=== PATIENT | male | born 1945 | race Caucasian/White ===

== ENCOUNTER → 2017-02-10 | Outpatient (CLI) | payer MEDICARE, BC ==
[~2017-02-10] MED LIST: ENDOCET 5-3251 EAC1 PO; MIRTAZAPINE15 MG PO; SINGULAIR10 MG PO
== END | disposition home or self-care (01) ==
LOC: CDC 13:34
DX: R94.31 Abnormal electrocardiogram [ECG] [EKG] (principal)
CPT/HCPCS: 93000

== ENCOUNTER 2017-06-23 08:32 | Emergency (ER) | payer OTHER, BC ==
[~2017-06-23] VITALS: Ht 170.2 cm; Wt 72.2 kg
[2017-06-23 10:09] LABS: HEMATOCRIT 42.9 % (38.0-50.0); MCHC 35.2 G/DL (30.0-36.0); MCV 96.6 FL (86-99); MEAN PLAT.VOLUME 10.1 uM^3 (9.0-12.4); PLATELET COUNT 238 K/uL (156-360); RBC DIS.WIDTH-CV 13.1 % (11.8-14.6); RBC DIS.WIDTH-SD 47.1 % (39-53); RED BLOOD COUNT 4.44 M/uL (4.00-5.50); WHITE BLOOD COUNT 9.5 K/uL (4.1-10.2)
[2017-06-23 10:26] LABS: CHLORIDE 103 mEq/L (99-109); POTASSIUM 3.8 mEq/L (3.7-5.4); SODIUM 140 mEq/L (136-147)
[2017-06-23 10:28] LABS: GLUCOSE 200 mg/dL (70-99)
[2017-06-23 10:29] LABS: ANION GAP 12 MEQ/L (2-14)
[2017-06-23 10:30] LABS: TOTAL BILIRUBIN 1.1 mg/dL (0.0-1.0)
[2017-06-23 10:31] LABS: SERUM ETHYL ALCOHOL < 10 mg/dL
[2017-06-23 10:32] LABS: GFR ESTIMATE (CALCULATED) > 59 mL/min/ (58.99-99999)
[2017-06-23 10:33] LABS: ALKALINE PHOSPHATASE 66 IU/L (3-129)
[2017-06-23 10:34] LABS: UREA NITROGEN (BUN) 15 mg/dL (9-23)
[2017-06-23 10:35] LABS: SALICYLATE < 5.0 MG/DL (15-30)
[2017-06-23 10:49] LABS: AMPHETAMINE NEGATIVE (500 ng/mL); BARBITURATES NEGATIVE (200 ng/mL); BENZODIAZEPINES NEGATIVE (150 ng/mL); COCAINE NEGATIVE (150 ng/mL); INTERNAL CONTROLS VALID? YES; METHADONE NEGATIVE (200 ng/mL); METHAMPHETAMINE NEGATIVE (500 ng/mL); OPIATES (MORPHINE) NEGATIVE (100 ng/mL); OXYCODONE NEGATIVE (100 ng/mL); PHENCYCLIDINE NEGATIVE (25 ng/mL); PROPOXYPHENE NEGATIVE (300 ng/mL); THC CANNABINOIDS NEGATIVE (50 ng/mL); TRICYCLIC ANTIDEPRESSANTS NEGATIVE (300 ng/mL)
[2017-06-23 11:39] VITALS: BP 112/21
== END 2017-06-23 11:40 | disposition home or self-care (01) ==
LOC: EME 08:32
PROVIDERS: Emergency Medicine
DX: F03.90 Unspecified dementia, unspecified severity, without behavioral disturbance, psychotic disturbance, mood disturbance, and anxiety (principal); J84.10 Pulmonary fibrosis, unspecified
CPT/HCPCS: 71010; 80053; 85027; 99281; 99283; G0480